=== PATIENT | female | born 1980 | race Caucasian/White ===

== ENCOUNTER 2016-10-30 18:36 | Inpatient (IN) | payer OTHER ==
[2016-10-30] MEDS ORDERED: SODIUM CHLORIDE 0.9% 1,000 ML IV STA (19:30)
--- NOTE | 2016-10-30 19:38 | ED ---
Back Pain HPI - General Source: patient, RN notes reviewed Limitations: no limitations <Lesley Mariee - Last Filed: 10/30/16 20:41> <Saravanan Gomez - Last Filed: 10/30/16 20:53> - General Chief Complaint: Back Pain/Injury Stated Complaint: abd pain Time Seen by Provider: 10/30/16 19:20 - History of Present Illness Initial Comments: 36-year-old female presents to the emergency Department chief complaint of bilateral flank pain. Patient states that she was diagnosed with UTI and started antibiotics for this on Thursday. Patient states that she now has developed some bilateral flank pain is still having dysuria. Patient states that she has had hot and cold flashes with this as well. 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 Patient states that she just seems to be getting worse so she was concerned. Patient states she has some nausea without vomiting or diarrhea. Patient states on the pain is in the back. Patient denies any recent fever, chills, shortness of breath, chest pain, abdominal pain, nausea vomiting, numbness or tingling, constipation or diarrhea, headaches or visual changes, or any other current symptoms. (Lesley Mariee) - Related Data Home Medications Medication Instructions Recorded Confirmed Cholecalciferol [Vitamin D3] 1,000 unit PO DAILY 10/30/16 10/30/16 Cranberry Extract [Cranberry] 500 mg PO ONCE 10/30/16 10/30/16 D-Mann[place] 500 mg PO TID 10/30/16 10/30/16 Magnesium 200 mg PO DAILY 10/30/16 10/30/16 [place]-3 Fatty Acids [[place]-3] 1,000 mg PO DAILY 10/30/16 10/30/16 Sulfamethox-Tmp 800-160Mg [Bactrim 1 tab PO Q12HR 10/30/16 10/30/16 DS 800-160 mg] Allergies Allergy/AdvReac Type Severity Reaction Status Date / Time casein AdvReac Nausea Verified 10/30/16 19:41 Review of Systems ROS Other: All systems not noted in ROS Statement are negative. <Lesley Mariee - Last Filed: 10/30/16 20:41> ROS Other: All systems not noted in ROS Statement are negative. <Saravanan Gomez - Last Filed: 10/30/16 20:53> ROS Statement: Those systems with pertinent positive or pertinent negative responses have been documented in the HPI. 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 Absent: scleral icterus, conjunctival injection, periorbital swelling ENT exam: Present: normal exam, mucous membranes moist Neck exam: Present: normal inspection. Absent: tenderness, meningismus, lymphadenopathy Respiratory exam: Present: normal lung sounds bilaterally. Absent: respiratory distress, wheezes, rales, rhonchi, stridor Cardiovascular Exam: Present: regular rate, normal rhythm, normal heart sounds. Absent: systolic murmur, diastolic murmur, rubs, gallop, clicks GI/Abdominal exam: Present: soft, normal bowel sounds. Absent: distended, tenderness, guarding, rebound, rigid Extremities exam: Present: normal inspection, full ROM, normal capillary refill. Absent: tenderness, pedal edema, joint swelling, calf tenderness Back exam: Present: normal inspection Neurological exam: Present: alert, oriented X3, CN II-XII intact Psychiatric exam: Present: normal affect, normal mood Skin exam: Present: warm, dry, intact, normal color. Absent: rash <Saravanan Gomez - Last Filed: 10/30/16 20:53> - General Exam Comments Initial Comments: General: The patient is awake and alert, in no distress, and does not appear acutely ill. Eye: Pupils are equal, round and reactive to light, extra-ocular movements are intact; there is normal conjunctiva bilaterally. No signs of icterus. Ears, nose, mouth and throat: There are moist mucous membranes. Neck: The neck is supple, there is no tenderness. Cardiovascular: There is a regular rate and rhythm. No murmur, rub or gallop is appreciated. Respiratory: Lungs are clear to auscultation, respirations are non-labored, breath sounds are equal. No wheezes, stridor, rales, or rhonchi. Gastrointestinal: Soft, non-distended, non-tender abdomen without masses or organomegaly noted. There is no rebound or guarding present. Bilateral CVA tenderness. Bowel sounds are unremarkable. Back: There is no tenderness to palpation in the midline. There is no obvious deformity. No rashes noted. Musculoskeletal: Normal ROM, no tenderness, There is no pedal edema. There is no calf tenderness or swelling. Sensation intact. Pulses equal bilaterally 2+. Neurological: CN II-XII intact, There are no obvious motor or sensory deficits. Coordination appears grossly intact. Speech is normal. Skin: Skin is warm and dry and no rashes or lesions are noted. Psychiatric: Cooperative, appropriate mood & affect, normal judgment. (Lesley Mariee) Course <Lesley Mariee - Last Filed: 10/30/16 20:41> <Saravanan Gomez - Last Filed: 10/30/16 20:53> Vital Signs 10/30/16 18:43 Temperature 98.1 F Pulse Rate 104 H Respiratory 20 Rate Blood Pressure 120/68 O2 Sat by Pulse 99 Oximetry - Reevaluation(s) Reevaluation #1: 10/30/16 20:53 Patient is doing and is improved with IV fluid and fever control (Saravanan Gomez) Medical Decision Making - Lab Data Result diagrams: 10/30/16 19:52 10/30/16 19:52 <Lesley Mariee - Last Filed: 10/30/16 20:41> - Lab Data Result diagrams: 10/30/16 19:52 10/30/16 19:52 <Saravanan Gomez - Last Filed: 10/30/16 20:53> - Medical Decision Making 36-year-old female presents to the emergency department with a chief complaint of bilateral flank pain. Patient does appear to have signs of infection in the urine with an elevated white count CVA tenderness. Skin there is suspicion for pyelonephritis. Patient's past medical history of kidney disease with failed outpatient treatment we will admit the patient for IV antibiotics. This was discussed with on-call physician to the Street the admission. (Lesley Mariee) 36 female to ER with tuberosclerosis, get him up pyelonephritis, failed outpatient treatment, patient will be admitted for IV antibiotics and therapy ( Saravanan Gomez) - Lab Data Lab Results 10/30/16 10/30/16 10/30/16 Range/Units 19:20 19:20 19:52 WBC 15.1 H (3.8-10.6) k/uL RBC 4.80 (3.80-5.40) m/uL Hgb 13.1 (11.4-16.0) gm/dL Hct 40.9 (34.0-46.0) % MCV 85.1 (80.0-100.0) fL MCH 27.3 (25.0-35.0) pg MCHC 32.1 (31.0-37.0) g/dL RDW 13.1 (11.5-15.5) % Plt Count 213 (150-450) k/uL Neutrophils % 83 % Lymphocytes % 11 % Monocytes % 4 % Eosinophils % 1 % Basophils % 0 % Neutrophils # 12.5 H (1.3-7.7) k/uL Lymphocytes # 1.7 (1.0-4.8) k/uL Monocytes # 0.6 (0-1.0) k/uL Eosinophils # 0.1 (0-0.7) k/uL Basophils # 0.0 (0-0.2) k/uL Sodium (137-145) mmol/L Potassium (3.5-5.1) mmol/L Chloride (98-107) mmol/L Carbon Dioxide (22-30) mmol/L Anion Gap mmol/L BUN (7-17) mg/dL Creatinine (0.52-1.04) mg/dL Est GFR (MDRD) Af Amer (>60 ml/min/1.73 sqM) Est GFR (MDRD) Non-Af (>60 ml/min/1.73 sqM) Glucose (74-99) mg/dL Plasma Lactic Acid Dannie (0.7-2.0) mmol/L Calcium (8.4-10.2) mg/dL Total Bilirubin (0.2-1.3) mg/dL AST (14-36) U/L ALT (9-52) U/L Alkaline Phosphatase (38-126) U/L Total Protein (6.3-8.2) g/dL Albumin (3.5-5.0) g/dL Urine Color Light Yellow Urine Appearance Clear (Clear) Urine pH 7.0 (5.0-8.0) Ur Specific [place] 1.003 (1.001-1.035) Urine Protein Trace H (Negative) Urine Glucose (UA) Negative (Negative) Urine Ketones Negative (Negative) Urine Blood Moderate H (Negative) Urine Nitrate Negative (Negative) Urine Bilirubin Negative (Negative) Urine Urobilinogen <2.0 (<2.0) mg/dL Ur Leukocyte Esterase Large H (Negative) Urine RBC 6 H (0-5) /hpf Urine WBC 71 H (0-5) /hpf Urine WBC Clumps Moderate H (None) /hpf Ur Squamous Epith Cells 2 (0-4) /hpf Amorphous Sediment Rare H (None) /hpf Urine Bacteria Occasional H (None) /hpf Hyaline Casts 1 (0-2) /lpf Urine HCG, Qual Not Detected (Not Detectd) 10/30/16 10/30/16 Range/Units 19:52 19:52 WBC (3.8-10.6) k/uL RBC (3.80-5.40) m/uL Hgb (11.4-16.0) gm/dL Hct (34.0-46.0) % MCV (80.0-100.0) fL MCH (25.0-35.0) pg MCHC (31.0-37.0) g/dL RDW (11.5-15.5) % Plt Count (150-450) k/uL Neutrophils % % Lymphocytes % % Monocytes % % Eosinophils % % Basophils % % Neutrophils # (1.3-7.7) k/uL Lymphocytes # (1.0-4.8) k/uL Monocytes # (0-1.0) k/uL Eosinophils # (0-0.7) k/uL Basophils # (0-0.2) k/uL Sodium 140 (137-145) mmol/L Potassium 3.8 (3.5-5.1) mmol/L Chloride 99 (98-107) mmol/L Carbon Dioxide 26 (22-30) mmol/L Anion Gap 15 mmol/L BUN 13 (7-17) mg/dL Creatinine 0.91 (0.52-1.04) mg/dL Est GFR (MDRD) Af Amer >60 (>60 ml/min/1.73 sqM) Est GFR (MDRD) Non-Af >60 (>60 ml/min/1.73 sqM) Glucose 97 (74-99) mg/dL Plasma Lactic Acid Dannie 1.3 (0.7-2.0) mmol/L Calcium 9.6 (8.4-10.2) mg/dL Total Bilirubin 0.5 (0.2-1.3) mg/dL AST 38 H (14-36) U/L ALT 50 (9-52) U/L Alkaline Phosphatase 85 (38-126) U/L Total Protein 8.3 H (6.3-8.2) g/dL Albumin 4.9 (3.5-5.0) g/dL Urine Color Urine Appearance (Clear) Urine pH (5.0-8.0) Ur Specific [place] (1.001-1.035) Urine Protein (Negative) Urine Glucose (UA) (Negative) Urine Ketones (Negative) Urine Blood (Negative) Urine Nitrate (Negative) Urine Bilirubin (Negative) Urine Urobilinogen (<2.0) mg/dL Ur Leukocyte Esterase (Negative) Urine RBC (0-5) /hpf Urine WBC (0-5) /hpf Urine WBC Clumps (None) /hpf Ur Squamous Epith Cells (0-4) /hpf Amorphous Sediment (None) /hpf Urine Bacteria (None) /hpf Hyaline Casts (0-2) /lpf Urine HCG, Qual (Not Detectd) Disposition Time of Disposition: 20:42 Decision Date: 10/30/16 Decision Time: 20:42 <Lesley Mariee - Last Filed: 10/30/16 20:41> <Saravanan Gomez - Last Filed: 10/30/16 20:53> Clinical Impression: Acute pyelonephritis Disposition: ADMITTED IP TO THIS [facility] Condition: Stable Referrals: Leticia Shepherd NPC [Primary Care Provider] - 1-2 days
[2016-10-30 19:46] LABS: Amorphous Sediment,Urine Rare /hpf; Appearance,Urine Clear (Clear); Bacteria,Urine Occasional /hpf; Bilirubin,Urine Negative (Negative); Glucose,Urine (UA) Negative (Negative); Ketones,Urine Negative (Negative); Leukocyte Esterase,Urine Large (Negative); Nitrite,Urine Negative (Negative); Particle Count 2937; Protein,Urine Trace (Negative); RBC,Urine 6 /hpf (0-5); Specific Gravity,Urine 1.003 (1.001-1.035); Squamous Epithelial Cell,Urine 2 /hpf (0-4); UA Billing (MACRO vs. MICRO) MICRO; Urobilinogen,Urine <2.0 mg/dL (<2.0); WBC,Urine 71 /hpf (0-5)
[2016-10-30] MEDS ORDERED: cefTRIAXone 2,000 MG in SODIUM CHLORIDE 0.9% 100 ML IVPB STA (20:01)
[2016-10-30 20:06] LABS: Basophils % (A) 0 %; CH 27.8; CHCM 32.8; Eosinophils # (A) 0.1 k/uL (0-0.7); Eosinophils % (A) 1 %; HCT 40.9 % (34.0-46.0); HDW 2.31; HGB 13.1 gm/dL (11.4-16.0); Luc # (Auto) 0.19; Luc % (Auto) 1; Lymphocytes # (A) 1.7 k/uL (1.0-4.8); Lymphocytes % (A) 11 %; MCH 27.3 pg (25.0-35.0); MCHC 32.1 g/dL (31.0-37.0); MCV 85.1 fL (80.0-100.0); Mean Platelet Volume 7.5; Monocytes # (A) 0.6 k/uL (0-1.0); Monocytes % (A) 4 %; Neutrophils # (A) 12.5 k/uL (1.3-7.7); Neutrophils % (A) 83 %; RDW 13.1 % (11.5-15.5); WBC 15.1 k/uL (3.8-10.6); WBC (Perox) 15.07
[2016-10-30 20:13] LABS: ALT 50 U/L (9-52); AST 38 U/L (14-36); Alkaline Phosphatase 85 U/L (38-126); Anion Gap 15 mmol/L; Blood Urea Nitrogen 13 mg/dL (7-17); Calcium 9.6 mg/dL (8.4-10.2); Carbon Dioxide 26 mmol/L (22-30); Chloride 99 mmol/L (98-107); Glucose 97 mg/dL (74-99); Non-African American GFR(MDRD) >60 (>60 ml/min/1.73 sqM); Potassium 3.8 mmol/L (3.5-5.1); Sodium 140 mmol/L (137-145); Total Bilirubin 0.5 mg/dL (0.2-1.3); Total Protein 8.3 g/dL (6.3-8.2)
[2016-10-30] MEDS ORDERED: NALOXONE 0.4 MG/ML 1 ML VIAL IV PRN (20:42)
[2016-10-30] MEDS ORDERED: ONDANSETRON 4 MG/2 ML VIAL IVP PRN (20:42)
[2016-10-30] MEDS ORDERED: HYDROcodone/APAP 5-325MG 1 EACH TAB PO PRN (20:42)
[2016-10-30] MEDS: ACETAMINOPHEN TAB 325 MG TAB PO PRN (20:56)
[2016-10-30] MEDS: SODIUM CHLORIDE 0.9% 1,000 ML IV SCH (20:58)
[2016-10-30 21:59] VITALS: RESP 16; BMI 22.1
[2016-10-31] MEDS: ACETAMINOPHEN TAB 325 MG TAB PO PRN (03:01)
[2016-10-31 06:43] LABS: Basophils % (A) 0 %; CH 27.6; Eosinophils # (A) 0.1 k/uL (0-0.7); Eosinophils % (A) 2 %; HCT 36.8 % (34.0-46.0); HDW 2.25; HGB 11.8 gm/dL (11.4-16.0); Luc # (Auto) 0.17; Luc % (Auto) 2; Lymphocytes # (A) 1.4 k/uL (1.0-4.8); Lymphocytes % (A) 20 %; MCH 27.8 pg (25.0-35.0); MCV 86.7 fL (80.0-100.0); Mean Platelet Volume 8.2; Monocytes # (A) 0.3 k/uL (0-1.0); Monocytes % (A) 4 %; Neutrophils % (A) 71 %; RBC 4.25 m/uL (3.80-5.40); RDW 13.1 % (11.5-15.5); WBC 7.1 k/uL (3.8-10.6); WBC (Perox) 7.67
[2016-10-31 06:55] LABS: ALT 45 U/L (9-52); AST 23 U/L (14-36); Alkaline Phosphatase 47 U/L (38-126); Anion Gap 6 mmol/L; Blood Urea Nitrogen 10 mg/dL (7-17); Calcium 8.5 mg/dL (8.4-10.2); Carbon Dioxide 26 mmol/L (22-30); Chloride 108 mmol/L (98-107); Glucose 96 mg/dL (74-99); Non-African American GFR(MDRD) >60 (>60 ml/min/1.73 sqM); Potassium 4.2 mmol/L (3.5-5.1); Sodium 140 mmol/L (137-145); Total Bilirubin 0.6 mg/dL (0.2-1.3); Total Protein 5.8 g/dL (6.3-8.2)
[2016-10-31] MEDS: SODIUM CHLORIDE 0.9% 1,000 ML IV SCH (07:33)
[2016-10-31 12:58] VITALS: BP 108/70; PULSE 77; TEMP 96.9
--- NOTE | 2016-10-31 19:06 | HP ---
DATE OF ADMISSION: 10/30/2016 HISTORY AND PHYSICAL EXAMINATION/DISCHARGE SUMMARY: This dictation is both history and physical examination and discharge summary. Patient is a 36-year-old female who came in with complaints of bilateral flank pain and dysuria and patient partially treated with Bactrim as an outpatient. Patient without any improvement in symptoms, because of which patient came in here. Patient had leukocytosis when she came in which resolved. The patient did not have any fevers. Patient urine has large leukocyte esterase and 71 WBC and patient significantly improved with Rocephin, completely resolved symptoms of bilateral flank pain and I do not have CT available. I do not expect blood cultures to be positive as patient was partially treated with Bactrim. Patient has significant clinical improvement. The patient will be discharged on Ceftin for 7 more days as we do not have any cultures and sensitivities. Patient improved with ceftriaxone. Ceftin is the closest oral medication, because of which patient will be discharged on that medication. Patient will set up follow up with Dr. Feliz as an outpatient. Patient will follow up with ( ) the patient will be referred to Dr. Feliz or Dr. Mauro in [place]. REVIEW OF SYSTEMS: CONSTITUTIONAL: No fever, no malaise, no fatigue. HEENT: No recent visual problems or hearing problems. Denied any sore throat. CARDIOVASCULAR: No chest pain, orthopnea, PND, no palpitations, no syncope. PULMONARY: No shortness of breath, no cough, no hemoptysis. GASTROINTESTINAL: Bilateral flank pain when she came in which completely resolved at this point of time. NEUROLOGICAL: No headaches, no weakness, no numbness. HEMATOLOGICAL: Denies any bleeding or petechiae. GENITOURINARY: Denies any burning micturition, frequency, or urgency. MUSCULOSKELETAL/RHEUMATOLOGICAL: Denies any joint pain, swelling, or any muscle pain. ENDOCRINE: Denies any polyuria or polydipsia. The rest of the 14 point review of systems is negative. Home medications include: 1. [place]-3 fatty acids. 2. Cranberry juice. 3. Cholecalciferol. PAST MEDICAL HISTORY: Significant for tuberculosis for which patient follows up in [facility]. Patient had a partial nephrectomy in the past. Past medical history is significant for atrial fibrillation, myasthenia gravis, thyroid cancer, and some kind of blood disorder in the family. SOCIAL HISTORY: Denied any smoking, alcohol abuse or any drug abuse. PHYSICAL EXAMINATION: Temperature 96.9, pulse 77, respiratory rate of 16, blood pressure is 188/77. Saturating at 97% on room air room air. GENERAL: The patient is alert and oriented x3, not in any acute distress. Well developed, well nourished. HEENT: Pupils are round and equally reacting to light. EOMI. No scleral icterus. No conjunctival pallor. Normocephalic, atraumatic. No pharyngeal erythema. No thyromegaly. CARDIOVASCULAR: S1 and S2 present. No murmurs, rubs, or gallops. PULMONARY: Chest is clear to auscultation, no wheezing or crackles. ABDOMEN: Soft, nontender, nondistended, normoactive bowel sounds. No palpable organomegaly. MUSCULOSKELETAL: No joint swelling or deformity. EXTREMITIES: No cyanosis, clubbing, or pedal edema. NEUROLOGICAL: Gross neurological examination did not reveal any focal deficits. SKIN: No rashes. LABORATORY DATA: CBC, CMP, essentially within normal limits. Now the patient when she came in had leukocytosis. ASSESSMENT AND PLAN: 1. Urinary tract infection and pyelonephritis. Patient is clinically doing well. We will discharge him on empiric antibiotic and Ceftin for 7 days as mentioned above. 2. Leukocytosis secondary to sepsis. 3. History of tubular sclerosis for which patient follows up in the [facility] for that and patient had a partial nephrectomy in the past. Patient will be deferred to Dr. Robb Feliz to follow up in 3 to 7 days. Activity as tolerated. Regular diet. This dictation is both H&P and discharge summary.
== END 2016-10-31 15:55 | disposition home or self-care (01) | DRG 872 ==
LOC: EC 18:36 → 6PED 20:42
PROVIDERS: ADMIT Hospitalist; ATTEND Hospitalist
DX: A41.9 Sepsis, unspecified organism (principal); N10 Acute pyelonephritis; N26.9 Renal sclerosis, unspecified; R11.0 Nausea; Z79.899 Other long term (current) drug therapy; Z87.440 Personal history of urinary (tract) infections; Z91.011 Allergy to milk products; Z80.8 Family history of malignant neoplasm of other organs or systems; Z82.49 Family history of ischemic heart disease and other diseases of the circulatory system; Z83.2 Family history of diseases of the blood and blood-forming organs and certain disorders involving the immune mechanism; Z90.5 Acquired absence of kidney
CPT/HCPCS: 36415; 80053; 81001; 81025; 83605; 85025; 87040; 87077; 87086; 87186; 96361; 96365; 99285

== ENCOUNTER → 2016-11-20 | Outpatient (CLI) | payer OTHER ==
--- NOTE | 2016-11-21 08:22 | US ---
EXAMINATION TYPE: US kidneys/renal and bladder DATE OF EXAM: 11/20/2016 3:40 PM COMPARISON: NONE CLINICAL HISTORY: YURIY.Flank Pain R10.9, patient has known bilateral angiomyolipomas, she states appro ximately a dozen on each side. She states there is a large angiomyolipoma on the left measuring aroun d 6cm and is exophytic. She also has a hx of tuberosclerosis. EXAM MEASUREMENTS: Right Kidney: 11.3 x 3.6 x 4.9 cm Left Kidney: 11.4 x 4.7 x 4.7 cm Right Kidney: speckled appearance, 2 largest probable lipomas measuring 1.) 0.7 x 1.2 x 0.7cm, 2.) 0. 7 x 0.7 x 0.7cm Left Kidney: speckled appearance, superior lipoma seen measuring 1.8 x 1.6 x 1.4cm, large lipoma not visualized by this exam, extensive bowel gas inferior. Bladder: not fully distended Both kidneys appear somewhat speckled. There are prominent angiomyolipomas in both kidneys. There is no hydronephrosis or nephrolithiasis. 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 A PREVIOUS CT SCAN IN 2015 SUGGESTED NEOPLASM. MRI OF THE KIDNEYS HAS NOT BEEN PERFORMED. THIS WOULD BE RECOMMENDED.
== END | disposition home or self-care (01) ==
LOC: RADUSWWP 14:20
PROVIDERS: ATTEND Urology
DX: D17.9 Benign lipomatous neoplasm, unspecified (principal); R10.9 Unspecified abdominal pain
CPT/HCPCS: 76770

== ENCOUNTER → 2017-12-08 | Outpatient (CLI) | payer BC ==
[2017-12-08 11:30] LABS: Blood Urea Nitrogen 16 mg/dL (7-17)
== END | disposition home or self-care (01) ==
LOC: LABWHC1 10:15
DX: R79.89 Other specified abnormal findings of blood chemistry (principal)
CPT/HCPCS: 36415; 82565; 84520